=== PATIENT | male | born 1960 | race Caucasian/White ===

== ENCOUNTER 2020-07-16 10:00 | Outpatient (RCR) | payer BC | END 2020-08-17 | disposition home or self-care (01) | LOC: MKS.ESL.PT | DX: M47.816 Spondylosis without myelopathy or radiculopathy, lumbar region (principal); M17.0 Bilateral primary osteoarthritis of knee; M19.011 Primary osteoarthritis, right shoulder; M19.012 Primary osteoarthritis, left shoulder ==

== ENCOUNTER 2021-07-21 09:15 | Outpatient (RCR) | payer BC | END 2021-08-13 | disposition home or self-care (01) | LOC: MKS.ESL.PT | DX: M25.562 Pain in left knee (principal) ==